=== PATIENT | female | born 1985 | race Caucasian/White ===

== ENCOUNTER 2020-02-25 13:19 | Emergency (ER) | payer BC, OTHER ==
[~2020-02-25] VITALS: Ht 160 cm; Wt 67.0 kg
--- NOTE | 2020-02-25 13:48 | NUR ---
[facility] [employer]: DEONTE Cole ROOM FROM [facility] Addendum: 02/25/20 at 1428 by FACUNDO PROVIDER SENT ANTIBIOTIC RX TO [facility] (ROSY DAY).
--- NOTE | 2020-02-25 14:27 | NUR ---
FINGER LAC WHILE CUTTING AN AVOCADO THIS MORNING. WAS SEEN AT [facility]. TD BOOSTER W/IN PAST 10 YRS.
[2020-02-25] MEDS ORDERED: BOTOX (14:34)
[2020-02-25] MEDS ORDERED: LORZONE (14:34)
[2020-02-25] MEDS ORDERED: DICLOFENAC (14:34)
[2020-02-25 15:11] VITALS: BP 115/73
== END 2020-02-25 15:13 | disposition home or self-care (01) ==
LOC: ED 14:06
DX: S61.211A Laceration without foreign body of left index finger without damage to nail, initial encounter (principal)
CPT/HCPCS: 29130; 99283